=== PATIENT | female | born 1970 | race Caucasian/White ===

== ENCOUNTER 2019-05-05 15:59 | Emergency (ER) | payer SELFPAY ==
[~2019-05-05] VITALS: Ht 170.2 cm; Wt 59.0 kg
[2019-05-05 15:59] VITALS: BP 114/75
--- NOTE | 2019-05-05 15:59 | NUR ---
PT BIBA AND PLACED IN [facility].
--- NOTE | 2019-05-05 15:59 | NUR ---
49/F BIBA FROM STREETS, C/O BL FEET PAIN, STARTED TO NOTICE X1 HR, S/P WALKING ALL DAY TODAY. BL PLANTAR FEET WITH MILD REDNESS, NO ABRASION, SWELLING, BRUISING OR DEFORMITY NOTED, +CMS, PT AMBULATORY WITH STEADY GAIT. PT AWAKE AND ALERT, SKIN NORMAL COLOR WARM AND DRY, RR EVEN AND UNLABORED. HX BREAST AUGMENTATION, LIPOSUCTION DENIES RX; OTC TYLENOL
[2019-05-05] MEDS ORDERED: KETOROLAC 30 MG/ML VIAL IM ONE (16:15)
--- NOTE | 2019-05-05 16:40 | NUR ---
PT STATED THAT SHE IS HOMELESS AND PLANS TO GO BACK TO STREETS. HOMELESS RESOURCE WAIVER SIGNED, HOMELESS RESOURCE PACKET PROVIDED, PT WITH APPROPRIATE CLOTHING FOR WEATHER, PROVIDED MEAL, PROVIDED BUS PASS.
[2019-05-05 16:45] VITALS: BP 114/75
== END 2019-05-05 16:45 | disposition home or self-care (01) ==
LOC: MED 15:59
DX: L84 Corns and callosities (principal); Z88.8 Allergy status to other drugs, medicaments and biological substances
CPT/HCPCS: 96372; 99283; J1885